=== PATIENT | male | born 1990 | race Two or more races ===

== ENCOUNTER 2024-12-19 07:24 | Outpatient (CLI) | payer BC ==
[2024-12-19 07:49] LABS: Hematocrit 46.8 % (41.0-53.0); Hemoglobin 16.3 g/dL (13.5-17.5); Mean Corpuscular Hemoglobin 29.9 pg (28.0-32.0); Mean Corpuscular Volume 86.1 fL (80.0-100.0); Nucleated Red Blood Cells % 0.2 %
[2024-12-19 07:51] LABS: Urine Protein, UAD Negative (Negative)
[2024-12-19 08:13] LABS: Alanine Aminotransferase 22 U/L (7-40); Albumin 4.6 g/dL (3.2-4.8); Alkaline Phosphatase 113 U/L (46-116); Anion Gap 9 (5-15); BUN/Creatinine Ratio 7.2 (10.0-20.0); Calcium 9.4 mg/dL (8.7-10.4); Carbon Dioxide 27 mmol/L (20-31); Chloride 104 mmol/L (98-107); Cholesterol 136 mg/dL (< 200); Glucose 95 mg/dL (74-106); Potassium 4.3 mmol/L (3.5-5.1); Sodium 140 mmol/L (136-145); Total Protein 7.6 g/dL (5.7-8.2); Triglycerides 109 mg/dL (< 150)
[2024-12-19 08:14] LABS: Bilirubin, Total 1.9 mg/dL (0.2-1.0); Blood Urea Nitrogen 8 mg/dL (9-23); HDL Cholesterol 37 mg/dL (40-59)
== END 2024-12-19 17:00 | disposition home or self-care (01) ==
LOC: LAB 07:24
PROVIDERS: ATTEND Internal Medicine
DX: I45.9 Conduction disorder, unspecified (principal); R09.81 Nasal congestion
CPT/HCPCS: 36415; 80053; 80061; 81001; 82785; 84439; 84443; 85025; 85652